=== PATIENT | male | born 1940 | race Caucasian/White ===

== ENCOUNTER 2024-02-19 15:06 | Emergency (ER) | payer MEDICARE ==
[~2024-02-19] VITALS: Ht 177.8 cm; Wt 95.5 kg
[2024-02-19] MEDS ORDERED: WELLBUTRIN SR150 M2 PO (15:18)
[2024-02-19] MEDS ORDERED: ATORVASTATIN CA20 MG PO (15:26)
[2024-02-19] MEDS ORDERED: ACETAMINOPHEN-H1 TA1 PO (15:26)
[2024-02-19] MEDS ORDERED: WARFARIN SODIUM1 MG PO (15:26)
[2024-02-19] MEDS ORDERED: WARFARIN SOD5 MG PO (15:26)
[2024-02-19] MEDS ORDERED: GLUCOPHAGE PO (15:26)
[2024-02-19] MEDS ORDERED: ALPRAZOLAM1 MG PO (15:27)
[2024-02-19] MEDS ORDERED: NEBIVOLOL HCL5 MG PO (15:27)
[2024-02-19] MEDS ORDERED: FLOMAX0.4 MG PO (15:27)
[2024-02-19] MEDS ORDERED: GLIMEPIRIDE4 MG PO (15:28)
[2024-02-19] MEDS ORDERED: ASPIRIN 81M81 MG/TA2 PO (15:29)
[2024-02-19 15:40] LABS: BASO # 0.01 K/mm3 (0.02-0.10); EOS # 0.11 K/mm3 (0.04-0.40); EOS % 1.8 % (0.0-4.0); HEMATOCRIT 44.4 % (42.0-52.0); HEMOGLOBIN 14.7 g/dL (13.5-18.0); LYMPH# 2.07 K/mm3 (1.50-4.00); MEAN CELL VOLUME 98 fl (78-100); MEAN CORPUSCULAR HEMOGLOBIN 33 pg (27-31); MEAN CORPUSCULAR HGB CONC 33 g/dL (33-37); MEAN PLATELET VOLUME 9.7 fl (7.4-10.4); MONO # 0.54 K/mm3 (0.20-0.80); PLATELET COUNT 131 K/mm3 (130-400); RED BLOOD COUNT 4.52 M/mm3 (4.20-5.60); RED CELL DISTRIBUTION WIDTH 13.4 % (11.5-14.5); WHITE BLOOD COUNT 6.2 K/mm3 (4.8-10.8)
[2024-02-19 15:45] LABS: ALBUMIN 3.9 g/dL (3.4-4.8)
[2024-02-19 15:47] LABS: CALCIUM 9.6 mg/dL (8.3-10.5)
[2024-02-19 15:48] LABS: TOTAL PROTEIN 6.8 g/dL (6.2-8.1)
[2024-02-19 15:58] LABS: URINE APPEARANCE CLEAR (CLEAR); URINE COLOR YELLOW (YELLOW)
[2024-02-19 15:59] LABS: PH-URINE 5.5 (5.0 - 8.0); URINE BILIRUBIN NEGATIVE (NEGATIVE); URINE BLOOD NEGATIVE (NEGATIVE); URINE GLUCOSE NEGATIVE (NEGATIVE); URINE KETONE NEGATIVE (NEGATIVE); URINE LEUKOCYTE ESTERASE NEGATIVE (NEGATIVE); URINE MUCUS PRESENT (NOT PRESENT); URINE NITRATE NEGATIVE (NEGATIVE); URINE PROTEIN(semi-quant) 2+ (NEGATIVE); URINE WBC 0-1 /hpf (0-3)
[2024-02-19 16:06] LABS: PROTHROMBIN TIME 25.7 SECONDS (9.0-12.0)
[2024-02-19 17:01] VITALS: BP 142/77
== END 2024-02-19 16:50 | disposition home or self-care (01) ==
LOC: ED 15:06
PROVIDERS: Nurse Practitioner
DX: S09.90XA Unspecified injury of head, initial encounter (principal); S00.03XA Contusion of scalp, initial encounter; Z79.01 Long term (current) use of anticoagulants; Z23 Encounter for immunization; W19.XXXA Unspecified fall, initial encounter; W22.8XXA Striking against or struck by other objects, initial encounter; Y92.009 Unspecified place in unspecified non-institutional (private) residence as the place of occurrence of the external cause
CPT/HCPCS: 90715